=== PATIENT | female | born 1960 | race American Indian/Alaskan Native ===

== ENCOUNTER 2018-06-28 08:25 | Emergency (ER) | payer OTHER ==
[2018-06-28 09:16] VITALS: BP 123/79
[2018-06-28 09:36] LABS: BUN/Creatinine Ratio 14; Blood Urea Nitrogen 11 mg/dL (7-17); Calcium 8.7 mg/dL (8.4-10.2); Hemolysis Index 5
[2018-06-28 09:37] LABS: Basophils % (Auto) 0.5 % (0.0-1.8); Eosinophils # (Auto) 0.1 K/mm3 (0.0-0.4); Eosinophils % (Auto) 2.3 % (0.0-4.3); Hematocrit 33.9 % (30.3-42.9); Hemoglobin 11.3 gm/dl (10.1-14.3); Lymphocytes # (Auto) 1.9 K/mm3 (1.2-5.4); Mean Corpuscular HGB Conc 33 % (30-34); Mean Corpuscular Volume 88 fl (79-97); Monocytes # (Auto) 0.3 K/mm3 (0.0-0.8); Platelet Count 284 K/mm3 (140-440); Red Blood Count 3.88 M/mm3 (3.65-5.03); Red Cell Distribution Width 14.4 % (13.2-15.2)
[2018-06-28 11:03] LABS: Bilirubin,Urine NEG (Negative); Blood,Urine LG (Negative); Color,Urine Red (Yellow); Urobilinogen,Urine < 2.0 mg/dL (<2.0)
[2018-06-28 11:06] LABS: RBC,Urine > 182.0 /HPF (0.0-6.0)
--- NOTE | 2018-06-28 12:51 | Ultrasound Report ---
FINAL REPORT EXAM: US PELVIC COMPLETE HISTORY: vag bleeding post menopause TECHNIQUE: Grayscale and color doppler ultrasound imaging of the pelvis was performed transabdomina lly and transvaginally. PRIORS: None. FINDINGS: Uterus: Small calcifications are seen within the anterior aspect of the uterus likely representing ca lcifying fibroids. The uterus measures 8.9 x 4.1 x 6.5 centimeters. Endometrium: The endometrium is normal in echogenicity. The endometrium measures 21.5 millimeters. Ovaries: The ovaries were not seen. Free fluid: There is a small amount of free fluid in the pelvis. IMPRESSION: 1. Thickened endometrium for a postmenopausal patient. Recommend further evaluation with endometrial biopsy. 2. Ovaries not visualized. 3. Small calcifications in the anterior aspect of the uterus likely represent calcifying fibroids. 4. Small volume of free fluid in the pelvis.
--- NOTE | 2018-06-28 12:51 | Ultrasound Report ---
FINAL REPORT EXAM: US TRANSVAGINAL HISTORY: vag bleeding post menopause TECHNIQUE: Grayscale and color doppler ultrasound imaging of the pelvis was performed transabdominal ly and transvaginally. PRIORS: None. FINDINGS: Uterus: Small calcifications are seen within the anterior aspect of the uterus likely representing ca lcifying fibroids. The uterus measures 8.9 x 4.1 x 6.5 centimeters. Endometrium: The endometrium is normal in echogenicity. The endometrium measures 21.5 millimeters. Ovaries: The ovaries were not seen. Free fluid: There is a small amount of free fluid in the pelvis. IMPRESSION: 1. Thickened endometrium for a postmenopausal patient. Recommend further evaluation with endometrial biopsy. 2. Ovaries not visualized. 3. Small calcifications in the anterior aspect of the uterus likely represent calcifying fibroids. 4. Small volume of free fluid in the pelvis.
--- NOTE | 2018-06-28 13:40 | Emergency Department Report ---
ED Female HPI - General Chief complaint: Vaginal Bleeding Stated complaint: BLOOD CLOT HEAVY FLOW Time Seen by Provider: 06/28/18 08:53 Source: patient Mode of arrival: Ambulatory Limitations: No Limitations - History of Present Illness Initial comments: Patient is a 57-year-old female who has had vaginal spotting for probably a month and a half however the bleeding became heavy for the last 3 days. The patient states she is passing large clots and possibly the size of her hand. Patient has some suprapubic discomfort mostly in the right lower abdomen. Patient states she is hesitant decreased ability to sleep secondary to abdominal cramps and feels weakness. Patient's last normal menstrual period was approximately 3 years ago. Patient considers herself to be in menopause. - Related Data Home Medications Medication Instructions Recorded Confirmed Last Taken Calcium Carb & Citrate/Vit D3 1 tab PO DAILY 12/07/13 12/08/13 12/06/13 [Calcium + Vitamin D3 Caplet] Multivit,Calc,Mins/Iron/Folic [Eq 1 tab PO DAILY 12/07/13 12/08/13 12/06/13 One Daily Women's Tablet] Mv,Calc,Min/Iron/Folic/Biotin [Sv 1 tab PO DAILY 12/07/13 12/08/13 12/06/13 Hair, Skin & Nails Caplet] Vitamin B Complex Vit C No.4 1 tab PO DAILY 12/07/13 12/08/13 12/06/13 [Super B Complex] Previous Rx's Medication Instructions Recorded Last Taken Type Ibuprofen [Motrin 800 MG tab] 800 mg PO Q8HR PRN #30 tablet 05/13/15 Unknown Rx Ibuprofen [Motrin] 600 mg PO Q8H PRN #20 tablet 06/28/18 Unknown Rx medroxyPROGESTERone ACETATE 10 mg PO DAILY #5 tablet 06/28/18 Unknown Rx [Provera] traMADol [Ultram] 50 mg PO Q6HR PRN #10 tablet 06/28/18 Unknown Rx Allergies Allergy/AdvReac Type Severity Reaction Status Date / Time No Known Allergies Allergy Verified 05/13/15 09:07 ED Review of Systems ROS: Stated complaint: BLOOD CLOT HEAVY FLOW Other details as noted in HPI Comment: All other systems reviewed and negative ED Past Medical Hx - Past Medical History Hx Hypertension: No Hx Heart Attack/AMI: No Hx Renal Disease: No Hx Seizures: No Hx Asthma: No Hx COPD: No Additional medical history: obesity - Surgical History Hx Pacemaker: No Hx Internal Defibrillator: No Additional Surgical History: X 2. OVARIAN CYST REMOVED - Social History Smoking Status: Former Smoker Substance Use Type: None - Medications Home Medications: Home Medications Medication Instructions Recorded Confirmed Last Taken Type Calcium Carb & Citrate/Vit D3 1 tab PO DAILY 12/07/13 12/08/13 12/06/13 History [Calcium + Vitamin D3 Caplet] Multivit,Calc,Mins/Iron/Folic [Eq 1 tab PO DAILY 12/07/13 12/08/13 12/06/13 History One Daily Women's Tablet] Mv,Calc,Min/Iron/Folic/Biotin [Sv 1 tab PO DAILY 12/07/13 12/08/13 12/06/13 History Hair, Skin & Nails Caplet] Vitamin B Complex Vit C No.4 1 tab PO DAILY 12/07/13 12/08/13 12/06/13 History [Super B Complex] Ibuprofen [Motrin 800 MG tab] 800 mg PO Q8HR PRN #30 tablet 05/13/15 Unknown Rx Ibuprofen [Motrin] 600 mg PO Q8H PRN #20 tablet 06/28/18 Unknown Rx medroxyPROGESTERone ACETATE 10 mg PO DAILY #5 tablet 06/28/18 Unknown Rx [Provera] traMADol [Ultram] 50 mg PO Q6HR PRN #10 tablet 06/28/18 Unknown Rx ED Physical Exam - General Limitations: No Limitations General appearance: alert, in no apparent distress - Head Head exam: Present: atraumatic, normocephalic - Eye Eye exam: Present: normal appearance - ENT ENT exam: Present: mucous membranes moist - Neck Neck exam: Present: normal inspection - Respiratory Respiratory exam: Present: normal lung sounds bilaterally. Absent: respiratory distress, wheezes, rales, rhonchi - Cardiovascular Cardiovascular Exam: Present: regular rate, normal rhythm. Absent: systolic murmur, diastolic murmur, rubs, gallop - GI/Abdominal GI/Abdominal exam: Present: soft, normal bowel sounds. Absent: distended, tenderness, guarding, rebound - Extremities Exam Extremities exam: Present: normal inspection - Back Exam Back exam: Present: normal inspection - Neurological Exam Neurological exam: Present: alert, oriented X3 - Psychiatric Psychiatric exam: Present: normal affect, normal mood - Skin Skin exam: Present: warm, dry, intact, normal color. Absent: rash ED Course Vital Signs 06/28/18 06/28/18 06/28/18 08:40 09:08 09:15 Temperature 98.1 F Pulse Rate 81 79 Respiratory 18 14 18 Rate Blood Pressure 123/79 Blood Pressure 139/78 [Left] O2 Sat by Pulse 99 97 Oximetry ED Medical Decision Making - Lab Data Result diagrams: 06/28/18 09:16 06/28/18 09:16 - Radiology Data [facility] [address] [place] [address] Ultrasound Report Signed Patient: ARNOLDO DENISE MR#: [id number] : 1960 Acct:[id number] Age/Sex: 57 / F ADM Date: 06/28/18 Loc: ED Attending Dr: Ordering Physician: CANDIE SCOTT MD Date of Service: 06/28/18 Procedure(s): US transvaginal Accession Number(s): [id number] cc: CANDIE SCOTT MD FINAL REPORT EXAM: US TRANSVAGINAL HISTORY: vag bleeding post menopause TECHNIQUE: Grayscale and color doppler ultrasound imaging of the pelvis was performed transabdominally and transvaginally. PRIORS: None. FINDINGS: Uterus: Small calcifications are seen within the anterior aspect of the uterus likely representing calcifying fibroids. The uterus measures 8.9 x 4.1 x 6.5 centimeters. Endometrium: The endometrium is normal in echogenicity. The endometrium measures 21.5 millimeters. Ovaries: The ovaries were not seen. Free fluid: There is a small amount of free fluid in the pelvis. IMPRESSION: 1. Thickened endometrium for a postmenopausal patient. Recommend further evaluation with endometrial biopsy. 2. Ovaries not visualized. 3. Small calcifications in the anterior aspect of the uterus likely represent calcifying fibroids. 4. Small volume of free fluid in the pelvis. Transcribed By: MG Dictated By: ANILA TAPIA MD Electronically Authenticated By: ANILA TAPIA MD Signed Date/Time: 06/28/18 1251 DD/ 1250 - Medical Decision Making She was given information about postmenopausal bleeding and we discussed her ultrasound findings. Patient's hemoglobin within normal limits and the patient be discharged home with a prescription for Provera to slow her bleeding. Patient also given follow-up with [facility] for probable biopsy of the uterine lining. Critical care attestation.: If time is entered above; I have spent that time in minutes in the direct care of this critically ill patient, excluding procedure time. ED Disposition Clinical Impression: DUB (dysfunctional uterine bleeding), Post-menopausal bleeding Disposition: TO HOME OR SELFCARE Is pt being admited?: No Does the pt Need Aspirin: No Condition: Stable Instructions: Dysfunctional Uterine Bleeding (ED) Referrals: MARYBETH DUNBAR MD [Staff Physician] - 3-5 Days Time of Disposition: 13:40
== END 2018-06-28 14:08 | disposition home or self-care (01) ==
LOC: ED 08:25
DX: N93.8 Other specified abnormal uterine and vaginal bleeding (principal); N95.0 Postmenopausal bleeding
CPT/HCPCS: 36415; 76830; 76856; 80048; 81001; 84703; 85025

== ENCOUNTER 2018-07-08 11:37 | Emergency (ER) | payer OTHER ==
[2018-07-08 12:01] VITALS: BP 144/93
--- NOTE | 2018-07-08 12:02 | Emergency Department Report ---
Blank Doc - Documentation Documentation: This is a 57 y.o. female that presents with vaginal bleeding. LMP 2016. Kathy ent reports heavy vaginal bleeding started the first week in May. Reports the past 4 weeks passing large clots. Patient seen here on 06/28/18 and transvaginal US shows thickened endometrium for postmenapausal patient. She had an appointment with [facility]HEMATICAL PHYSICIST after initial visit and they couldn't see her. She have appointment with MATHEMATICAL PHYSICIST next week. Ordered labs. Fast track for further evaluation.
[2018-07-08 12:41] LABS: Basophils % (Auto) 0.5 % (0.0-1.8); Eosinophils # (Auto) 0.1 K/mm3 (0.0-0.4); Eosinophils % (Auto) 1.6 % (0.0-4.3); Hematocrit 27.4 % (30.3-42.9); Hemoglobin 9.3 gm/dl (10.1-14.3); Lymphocytes # (Auto) 2.3 K/mm3 (1.2-5.4); Lymphocytes % (Auto) 38.1 % (13.4-35.0); Mean Corpuscular HGB Conc 34 % (30-34); Mean Corpuscular Volume 87 fl (79-97); Monocytes # (Auto) 0.2 K/mm3 (0.0-0.8); Platelet Count 271 K/mm3 (140-440); Red Blood Count 3.13 M/mm3 (3.65-5.03); Red Cell Distribution Width 14.5 % (13.2-15.2)
[2018-07-08 13:41] LABS: Bilirubin,Urine NEG (Negative); Blood,Urine LG (Negative); Color,Urine Red (Yellow); Mucus,Urine 2+ /HPF; Urobilinogen,Urine < 2.0 mg/dL (<2.0)
[2018-07-08 13:42] LABS: RBC,Urine > 182.0 /HPF (0.0-6.0); WBC,Urine > 182.0 /HPF (0.0-6.0)
--- NOTE | 2018-07-08 14:47 | Emergency Department Report ---
ED Female HPI - General Chief complaint: Vaginal Bleeding Stated complaint: BLEEDING/CLOTTING Time Seen by Provider: 07/08/18 11:58 Source: patient Mode of arrival: Ambulatory Limitations: No Limitations - History of Present Illness Initial comments: This is a 57-year-old female who presents to ED complaining of intermittent vaginal bleeding that started in May of this year. Patient states bleeding began lightly and is getting heavier with clots. Patient states she had an ultrasound week ago ordered by her [facility]. Patient states she is up with [facility] next week. Patient states bleeding felt worse which is why she came in the ER to be evaluated. She denies fevers/chills/nausea vomiting/abdominal or pelvic pain/dysuria/fatigue or weakness. MD Complaint: vaginal bleeding - Related Data Home Medications Medication Instructions Recorded Confirmed Last Taken Calcium Carb & Citrate/Vit D3 1 tab PO DAILY 12/07/13 12/08/13 12/06/13 [Calcium + Vitamin D3 Caplet] Multivit,Calc,Mins/Iron/Folic [Eq 1 tab PO DAILY 12/07/13 12/08/13 12/06/13 One Daily Women's Tablet] Mv,Calc,Min/Iron/Folic/Biotin [Sv 1 tab PO DAILY 12/07/13 12/08/13 12/06/13 Hair, Skin & Nails Caplet] Vitamin B Complex Vit C No.4 1 tab PO DAILY 12/07/13 12/08/13 12/06/13 [Super B Complex] Previous Rx's Medication Instructions Recorded Last Taken Type Ibuprofen [Motrin] 600 mg PO Q8H PRN #20 tablet 06/28/18 Unknown Rx medroxyPROGESTERone ACETATE 10 mg PO DAILY #5 tablet 06/28/18 Unknown Rx [Provera] traMADol [Ultram] 50 mg PO Q6HR PRN #10 tablet 06/28/18 Unknown Rx Ibuprofen [Motrin 800 MG tab] 800 mg PO Q8HR PRN #30 tablet 07/08/18 Unknown Rx Allergies Allergy/AdvReac Type Severity Reaction Status Date / Time No Known Allergies Allergy Verified 05/13/15 09:07 ED Review of Systems ROS: Stated complaint: BLEEDING/CLOTTING Other details as noted in HPI Comment: All other systems reviewed and negative ED Past Medical Hx - Past Medical History Previous Medical History?: No Hx Hypertension: No Hx Heart Attack/AMI: No Hx Renal Disease: No Hx Seizures: No Hx Asthma: No Hx COPD: No Additional medical history: obesity - Surgical History Hx Pacemaker: No Hx Internal Defibrillator: No Additional Surgical History: X 2. OVARIAN CYST REMOVED - Social History Smoking Status: Never Smoker Substance Use Type: None - Medications Home Medications: Home Medications Medication Instructions Recorded Confirmed Last Taken Type Calcium Carb & Citrate/Vit D3 1 tab PO DAILY 12/07/13 12/08/13 12/06/13 History [Calcium + Vitamin D3 Caplet] Multivit,Calc,Mins/Iron/Folic [Eq 1 tab PO DAILY 12/07/13 12/08/13 12/06/13 History One Daily Women's Tablet] Mv,Calc,Min/Iron/Folic/Biotin [Sv 1 tab PO DAILY 12/07/13 12/08/13 12/06/13 History Hair, Skin & Nails Caplet] Vitamin B Complex Vit C No.4 1 tab PO DAILY 12/07/13 12/08/13 12/06/13 History [Super B Complex] Ibuprofen [Motrin] 600 mg PO Q8H PRN #20 tablet 06/28/18 Unknown Rx medroxyPROGESTERone ACETATE 10 mg PO DAILY #5 tablet 06/28/18 Unknown Rx [Provera] traMADol [Ultram] 50 mg PO Q6HR PRN #10 tablet 06/28/18 Unknown Rx Ibuprofen [Motrin 800 MG tab] 800 mg PO Q8HR PRN #30 tablet 07/08/18 Unknown Rx ED Physical Exam - General Limitations: No Limitations General appearance: alert, in no apparent distress - Head Head exam: Present: atraumatic, normocephalic - Eye Eye exam: Present: normal appearance - ENT ENT exam: Present: mucous membranes moist - Neck Neck exam: Present: normal inspection - Respiratory Respiratory exam: Present: normal lung sounds bilaterally. Absent: respiratory distress - Cardiovascular Cardiovascular Exam: Present: regular rate, normal rhythm. Absent: systolic murmur, diastolic murmur, rubs, gallop - GI/Abdominal GI/Abdominal exam: Present: soft, normal bowel sounds - Extremities Exam Extremities exam: Present: normal inspection - Back Exam Back exam: Present: normal inspection - Neurological Exam Neurological exam: Present: alert, oriented X3 - Psychiatric Psychiatric exam: Present: normal affect, normal mood - Skin Skin exam: Present: warm, dry, intact, normal color. Absent: rash ED Course Vital Signs 07/08/18 11:59 Temperature 97.9 F Pulse Rate 105 H Respiratory 18 Rate Blood Pressure 144/93 O2 Sat by Pulse 100 Oximetry ED Medical Decision Making - Lab Data Result diagrams: 07/08/18 12:26 - Radiology Data Radiology results: report reviewed, image reviewed FINAL REPORT EXAM: US TRANSVAGINAL HISTORY: vag bleeding post menopause TECHNIQUE: Grayscale and color doppler ultrasound imaging of the pelvis was performed transabdominally and transvaginally. PRIORS: None. FINDINGS: Uterus: Small calcifications are seen within the anterior aspect of the uterus likely representing calcifying fibroids. The uterus measures 8.9 x 4.1 x 6.5 centimeters. Endometrium: The endometrium is normal in echogenicity. The endometrium measures 21.5 millimeters. Ovaries: The ovaries were not seen. Free fluid: There is a small amount of free fluid in the pelvis. IMPRESSION: 1. Thickened endometrium for a postmenopausal patient. Recommend further evaluation with endometrial biopsy. 2. Ovaries not visualized. 3. Small calcifications in the anterior aspect of the uterus likely represent calcifying fibroids. 4. Small volume of free fluid in the pelvis. Transcribed By: MG Dictated By: ANILA TAPIA MD Electronically Authenticated By: ANILA TAPIA MD Signed Date/Time: 06/28/18 1251 - Medical Decision Making 57-year-old female presents with postmenstrual bleeding. Ultrasound shows reported above. Patient has appointment with [facility] next week for endometrial biopsy. Vital signs are stable patient distress Labs are within normal limits H&H mildly decreased but stable. Patient is not exhibiting any symptoms such as fatigue, weakness. Urinalysis negative. Patient does not exhibit any pelvic pain. Discussed to follow up in [facility] as scheduled. Critical care attestation.: If time is entered above; I have spent that time in minutes in the direct care of this critically ill patient, excluding procedure time. ED Disposition Clinical Impression: Dysfunctional uterine bleeding Disposition: DC-01 TO HOME OR SELFCARE Is pt being admited?: No Does the pt Need Aspirin: No Condition: Stable Instructions: Dysfunctional Uterine Bleeding (ED), Uterine Fibroids (ED) Additional Instructions: Make sure to follow up with the [facility]AGLINE OILER as discussed. Take all your medications as you've been prescribed. If you have any worsening symptoms or develop new symptoms please return to ED immediately. Prescriptions: Ibuprofen [Motrin 800 MG tab] 800 mg PO Q8HR PRN #30 tablet PRN Reason: Pain Referrals: RADHA CRAMER MD [Primary Care Provider] - 3-5 Days Forms: Accompanied Note, Work/School Release Form(ED) Time of Disposition: 14:48
== END 2018-07-08 15:15 | disposition home or self-care (01) ==
LOC: ED 11:37
DX: N93.8 Other specified abnormal uterine and vaginal bleeding (principal)
CPT/HCPCS: 36415; 81001; 84702; 85025; 86850; 86900; 86901; 99283